=== PATIENT | male | born 1945 | race Caucasian/White ===

== ENCOUNTER → 2017-07-24 | Outpatient (CLI) | payer OTHER ==
[~2017-07-24] MED LIST: ACETAMINOPHEN-O1 TAB PO; CEFTIN500 M1 PO; CENTRUM MEN'S1 EACH PO; CIPRO250 MG PO; CIPRO500 MG PO; COLACE100 MG PO; FLOMAX0.4 MG PO; PYRIDIUM200 M1 PO; VITAMIN D-32000 UNI1 PO
== END | disposition home or self-care (01) ==
LOC: RESCLI 02:39
DX: I10 Essential (primary) hypertension (principal); E66.01 Morbid (severe) obesity due to excess calories; E55.9 Vitamin D deficiency, unspecified; R32 Unspecified urinary incontinence

== ENCOUNTER → 2017-07-28 | Outpatient (CLI) | payer OTHER ==
[2017-07-28 11:14] LABS: ALBUMIN 3.5 gm/dl (3.1-4.5); ALKALINE PHOSPHATASE 85 U/L (45-117); BUN 14 mg/dl (7-24); CHLORIDE 105 mmol/L (98-107); CHOLESTEROL 192 mg/dL (<200); CREATININE 1.02 mg/dL (0.70-1.30); HDL CHOLESTEROL 49 mg/dl (40-60); LDL CHOLESTEROL 115 mg/dL (9-159); POTASSIUM 5.1 mmol/L (3.5-5.1); SGOT/AST 30 IU/L (3-35); SGPT/ALT 53 U/L (12-78); SODIUM 139 mmol/L (136-145); TOTAL PROTEIN 7.8 gm/dL (6.4-8.2); TRIGLYCERIDES 141 mg/dl (<150); VLDL CHOLESTEROL 28 mg/dL (6-40)
== END | disposition home or self-care (01) ==
LOC: LAB 10:08
PROVIDERS: Student in an Organized Health Care Education/Training Program
DX: Z00.01 Encounter for general adult medical examination with abnormal findings (principal); R79.89 Other specified abnormal findings of blood chemistry; Z79.899 Other long term (current) drug therapy

== ENCOUNTER → 2017-07-31 | Outpatient (CLI) | payer OTHER | END | disposition home or self-care (01) | LOC: RESCLI 01:22 | DX: Z09 Encounter for follow-up examination after completed treatment for conditions other than malignant neoplasm (principal); I10 Essential (primary) hypertension; E66.01 Morbid (severe) obesity due to excess calories; E55.9 Vitamin D deficiency, unspecified ==

== ENCOUNTER → 2017-09-13 | Outpatient (CLI) | payer OTHER ==
[2017-09-13 12:23] LABS: BUN 18 mg/dl (7-24); CHLORIDE 107 mmol/L (98-107); CREATININE 0.92 mg/dL (0.70-1.30); POTASSIUM 4.6 mmol/L (3.5-5.1); SODIUM 139 mmol/L (136-145)
== END | disposition home or self-care (01) ==
LOC: LAB 00:44 → RESCLI 00:44
PROVIDERS: Student in an Organized Health Care Education/Training Program
DX: I10 Essential (primary) hypertension (principal)

== ENCOUNTER → 2017-10-25 | Outpatient (CLI) | payer OTHER | END | disposition home or self-care (01) | LOC: RESCLI 00:46 | DX: Z09 Encounter for follow-up examination after completed treatment for conditions other than malignant neoplasm (principal); I10 Essential (primary) hypertension; E66.01 Morbid (severe) obesity due to excess calories; E55.9 Vitamin D deficiency, unspecified; R60.0 Localized edema ==

== ENCOUNTER → 2018-01-23 | Outpatient (CLI) | payer OTHER ==
[~2018-01-23] MED LIST changes: +LISINOPRIL20 MG PO; +SEPTDS PO
== END | disposition home or self-care (01) ==
LOC: RESCLI 01:33
DX: Z09 Encounter for follow-up examination after completed treatment for conditions other than malignant neoplasm (principal); I10 Essential (primary) hypertension; E66.01 Morbid (severe) obesity due to excess calories; E55.9 Vitamin D deficiency, unspecified; R60.0 Localized edema

== ENCOUNTER 2018-02-05 12:04 | Emergency (ER) | payer OTHER ==
[~2018-02-05] VITALS: Ht 177.8 cm; Wt 122.5 kg
[~2018-02-05 12:04] MED LIST changes: -LISINOPRIL20 MG PO; -SEPTDS PO
[2018-02-05] MEDS ORDERED: LISINOPRIL20 MG PO (12:06)
[2018-02-05 12:24] LABS: BILIRUBIN NEGATIVE (NEGATIVE); BLOOD 1+ (NEGATIVE); CLARITY CLOUDY (CLEAR); COLOR YELLOW (YELLOW); GLUCOSE NEGATIVE (NEGATIVE); KETONE NEGATIVE (NEGATIVE); LEUKO ESTERASE 3+ (NEGATIVE); NITRITE POSITIVE (NEGATIVE); UROBILINOGEN 0.2 E.U./dl (0.2-1.0)
[2018-02-05 12:47] LABS: RBC 21-30 rbc/hpf (0-2); WBC TNTC wbc/hpf (0-5)
[2018-02-05 12:48] LABS: BACTERIA 3+
[2018-02-05] MEDS ORDERED: SEPTDS PO (12:57)
== END 2018-02-05 13:07 | disposition home or self-care (01) ==
LOC: ED 12:04
PROVIDERS: Nurse Practitioner Family
DX: N39.0 Urinary tract infection, site not specified (principal); R31.9 Hematuria, unspecified; R30.0 Dysuria; R03.0 Elevated blood-pressure reading, without diagnosis of hypertension; Z79.899 Other long term (current) drug therapy

== ENCOUNTER → 2018-02-22 | Outpatient (CLI) | payer OTHER ==
[~2018-02-22] MED LIST changes: +LISINOPRIL20 MG PO; +SEPTDS PO
[2018-02-22 15:12] LABS: BILIRUBIN NEGATIVE (NEGATIVE); BLOOD NEGATIVE (NEGATIVE); CLARITY CLEAR (CLEAR); COLOR YELLOW (YELLOW); GLUCOSE NEGATIVE (NEGATIVE); KETONE NEGATIVE (NEGATIVE); LEUKO ESTERASE 2+ (NEGATIVE); NITRITE NEGATIVE (NEGATIVE)
[2018-02-22 15:19] LABS: BACTERIA 2+; RBC 0-2 rbc/hpf (0-2); WBC 16-20 wbc/hpf (0-5)
== END | disposition home or self-care (01) ==
LOC: RESCLI 01:42
PROVIDERS: Internal Medicine
DX: N39.0 Urinary tract infection, site not specified (principal); I10 Essential (primary) hypertension; E66.9 Obesity, unspecified; Z79.899 Other long term (current) drug therapy

== ENCOUNTER → 2018-03-16 | Outpatient (CLI) | payer OTHER ==
[2018-03-16 09:45] LABS: BASO # 0.1 10*3/uL (0.0-0.1); EOS # 0.6 10*3/uL (0.0-0.4); HEMATOCRIT 44.1 % (42.0-52.0); HEMOGLOBIN 14.4 g/dl (14.0-18.0); LYMPH % 22.5 % (27.0-41.0); MEAN CELL VOLUME 95.5 fl (80.0-94.0); MEAN CORPUSCULAR HGB 31.2 pg (27.0-31.0); MEAN CORPUSCULAR HGB CONC 32.7 g/dl (33.0-37.0); MEAN PLATELET VOLUME 11.6 fl (9.6-12.3); MONO # 0.7 10*3/uL (0.1-1.0); NEUT # 5.3 10*3/uL (2.3-7.9); NEUT % 61.3 % (47.0-73.0); PLATELET COUNT AUTOMATED 212 10*3/uL (130-400); RED BLOOD COUNT 4.62 10*6/uL (4.50-5.90); RED CELL DISTRI WIDTH 14.2 % (0-14.5); WHITE BLOOD COUNT 8.7 10*3/uL (4.8-10.8)
[2018-03-16 09:54] LABS: BILIRUBIN NEGATIVE (NEGATIVE); BLOOD TRACE-INTACT (NEGATIVE); CLARITY CLOUDY (CLEAR); COLOR YELLOW (YELLOW); GLUCOSE NEGATIVE (NEGATIVE); KETONE NEGATIVE (NEGATIVE); LEUKO ESTERASE 3+ (NEGATIVE); NITRITE POSITIVE (NEGATIVE); PH 5.5 (5.0-9.0); UROBILINOGEN 0.2 E.U./dl (0.2-1.0)
[2018-03-16 10:02] LABS: ALBUMIN 3.6 gm/dl (3.1-4.5); ALKALINE PHOSPHATASE 68 U/L (45-117); BUN 19 mg/dl (7-24); CHLORIDE 104 mmol/L (98-107); CHOLESTEROL 170 mg/dL (<200); HDL CHOLESTEROL 44 mg/dl (40-60); LDL CHOLESTEROL 103 mg/dL (9-159); POTASSIUM 4.1 mmol/L (3.5-5.1); SGOT/AST 15 IU/L (3-35); SGPT/ALT 30 U/L (12-78); SODIUM 137 mmol/L (136-145); TOTAL PROTEIN 7.5 gm/dL (6.4-8.2); TRIGLYCERIDES 114 mg/dl (<150); VLDL CHOLESTEROL 23 mg/dL (6-40)
[2018-03-16 10:21] LABS: WBC TNTC wbc/hpf (0-5)
== END | disposition home or self-care (01) ==
LOC: LAB 14:02
PROVIDERS: Internal Medicine
DX: Z00.01 Encounter for general adult medical examination with abnormal findings (principal); Z12.5 Encounter for screening for malignant neoplasm of prostate; N39.0 Urinary tract infection, site not specified; E55.9 Vitamin D deficiency, unspecified; Z79.899 Other long term (current) drug therapy

== ENCOUNTER → 2018-06-05 | Outpatient (CLI) | payer OTHER ==
[2018-06-05 10:56] LABS: BILIRUBIN NEGATIVE (NEGATIVE); BLOOD NEGATIVE (NEGATIVE); CLARITY CLEAR (CLEAR); COLOR YELLOW (YELLOW); GLUCOSE NEGATIVE (NEGATIVE); KETONE 1+ (NEGATIVE); LEUKO ESTERASE 1+ (NEGATIVE); NITRITE NEGATIVE (NEGATIVE); SPECIFIC GRAVITY <= 1.005 (1.005-1.030); UROBILINOGEN 0.2 E.U./dl (0.2-1.0)
[2018-06-05 11:04] LABS: BACTERIA TRACE; EPITHELIAL CELLS 0-2; WBC 16-20 wbc/hpf (0-5)
== END | disposition home or self-care (01) ==
LOC: RESCLI 09:08
PROVIDERS: Student in an Organized Health Care Education/Training Program
DX: M54.5 Low back pain (principal); M54.32 Sciatica, left side; M79.605 Pain in left leg; I10 Essential (primary) hypertension; E66.01 Morbid (severe) obesity due to excess calories; E55.9 Vitamin D deficiency, unspecified; N40.0 Benign prostatic hyperplasia without lower urinary tract symptoms; R32 Unspecified urinary incontinence; Z88.8 Allergy status to other drugs, medicaments and biological substances

== ENCOUNTER → 2018-06-14 | Outpatient (CLI) | payer OTHER | END | disposition home or self-care (01) | LOC: RESCLI 03:26 | DX: I10 Essential (primary) hypertension (principal); E66.01 Morbid (severe) obesity due to excess calories; M54.42 Lumbago with sciatica, left side; E55.9 Vitamin D deficiency, unspecified; R60.0 Localized edema ==

== ENCOUNTER → 2018-07-19 | Outpatient (CLI) | payer OTHER | END | disposition home or self-care (01) | LOC: RESCLI 04:09 | DX: I10 Essential (primary) hypertension (principal); E55.9 Vitamin D deficiency, unspecified; E66.01 Morbid (severe) obesity due to excess calories; Z79.899 Other long term (current) drug therapy ==

== ENCOUNTER → 2019-01-08 | Outpatient (CLI) | payer OTHER ==
[2019-01-08 10:36] LABS: ALBUMIN 3.6 gm/dl (3.1-4.5); ALKALINE PHOSPHATASE 75 U/L (45-117); BUN 18 mg/dl (7-24); CHLORIDE 108 mmol/L (98-107); CREATININE 1.01 mg/dL (0.70-1.30); POTASSIUM 4.1 mmol/L (3.5-5.1); SGOT/AST 16 IU/L (3-35); SGPT/ALT 35 U/L (12-78); SODIUM 140 mmol/L (136-145); TOTAL PROTEIN 7.7 gm/dL (6.4-8.2)
== END | disposition home or self-care (01) ==
LOC: LAB 09:34
PROVIDERS: Internal Medicine
DX: I10 Essential (primary) hypertension (principal); E66.01 Morbid (severe) obesity due to excess calories; E55.9 Vitamin D deficiency, unspecified; Z79.899 Other long term (current) drug therapy

== ENCOUNTER → 2019-01-09 | Outpatient (CLI) | payer OTHER | END | disposition home or self-care (01) | LOC: RESCLI 00:47 | DX: I10 Essential (primary) hypertension (principal); E55.9 Vitamin D deficiency, unspecified; E66.9 Obesity, unspecified ==

== ENCOUNTER → 2019-06-12 | Outpatient (CLI) | payer OTHER | END | disposition home or self-care (01) | LOC: RESCLI 01:23 | DX: I10 Essential (primary) hypertension (principal); E55.9 Vitamin D deficiency, unspecified; Z79.899 Other long term (current) drug therapy ==

== ENCOUNTER → 2020-07-17 | Outpatient (CLI) | payer OTHER ==
[2020-07-17 11:30] LABS: BASO # 0.1 10*3/uL (0.0-0.1); BASO % 0.7 % (0.0-1.0); EOS # 0.3 10*3/uL (0.0-0.4); EOS % 3.1 % (1.0-4.0); HEMATOCRIT 47.7 % (42.0-52.0); LYMPH # 1.8 10*3/uL (1.3-4.4); LYMPH % 17.9 % (27.0-41.0); MEAN CELL VOLUME 94.5 fl (80.0-94.0); MEAN CORPUSCULAR HGB 30.7 pg (27.0-31.0); MEAN CORPUSCULAR HGB CONC 32.5 g/dl (33.0-37.0); MEAN PLATELET VOLUME 11.2 fl (9.6-12.3); MONO # 0.6 10*3/uL (0.1-1.0); MONO % 6.3 % (3.0-9.0); NEUT # 7.1 10*3/uL (2.3-7.9); NEUT % 71.7 % (47.0-73.0); PLATELET COUNT AUTOMATED 253 10*3/uL (130-400); RED BLOOD COUNT 5.05 10*6/uL (4.50-5.90); RED CELL DISTRI WIDTH 13.1 % (0-14.5); WHITE BLOOD COUNT 9.9 10*3/uL (4.8-10.8)
[2020-07-17 12:01] LABS: ALBUMIN 3.8 gm/dl (3.1-4.5); ALKALINE PHOSPHATASE 95 U/L (45-117); BUN 19 mg/dl (7-24); CHLORIDE 105 mmol/L (98-107); CHOLESTEROL 120 mg/dL (<200); CREATININE 0.99 mg/dL (0.70-1.30); HDL CHOLESTEROL 56 mg/dl (40-60); LDL CHOLESTEROL 48 mg/dL (9-159); POTASSIUM 4.1 mmol/L (3.5-5.1); SGOT/AST 32 IU/L (3-35); SGPT/ALT 61 U/L (12-78); SODIUM 138 mmol/L (136-145); TRIGLYCERIDES 80 mg/dl (<150); VLDL CHOLESTEROL 16 mg/dL (6-40)
== END | disposition home or self-care (01) ==
LOC: LAB 11:03
PROVIDERS: Internal Medicine; ATTEND Family Medicine
DX: I10 Essential (primary) hypertension (principal); Z79.899 Other long term (current) drug therapy

== ENCOUNTER → 2020-07-24 | Outpatient (CLI) | payer OTHER | END | disposition home or self-care (01) | LOC: RESCLI 00:32 | PROVIDERS: ATTEND Internal Medicine | DX: E55.9 Vitamin D deficiency, unspecified (principal); I10 Essential (primary) hypertension; N39.0 Urinary tract infection, site not specified; Z79.899 Other long term (current) drug therapy ==

== ENCOUNTER 2020-11-03 10:58 | Emergency (ER) | payer OTHER ==
[~2020-11-03] VITALS: Wt 117.9 kg
== END 2020-11-03 14:45 | disposition home or self-care (01) ==
LOC: ED 10:58
DX: S01.511A Laceration without foreign body of lip, initial encounter (principal); Z79.899 Other long term (current) drug therapy; W01.190A Fall on same level from slipping, tripping and stumbling with subsequent striking against furniture, initial encounter; Y93.89 Activity, other specified; Y92.89 Other specified places as the place of occurrence of the external cause; Y99.8 Other external cause status

== ENCOUNTER → 2020-11-09 | Outpatient (CLI) | payer OTHER | END | disposition home or self-care (01) | LOC: RESCLI 00:21 | PROVIDERS: ATTEND Internal Medicine Nephrology | DX: S01.511D Laceration without foreign body of lip, subsequent encounter (principal); I10 Essential (primary) hypertension; E55.9 Vitamin D deficiency, unspecified; N39.0 Urinary tract infection, site not specified; X58.XXXD Exposure to other specified factors, subsequent encounter; Z98.890 Other specified postprocedural states ==

== ENCOUNTER → 2020-11-13 | Outpatient (CLI) | payer OTHER | END | disposition home or self-care (01) | LOC: RESCLI 14:05 | PROVIDERS: ATTEND Psychiatry & Neurology Neurology | DX: S01.511D Laceration without foreign body of lip, subsequent encounter (principal); X58.XXXD Exposure to other specified factors, subsequent encounter ==

== ENCOUNTER → 2020-12-23 | Outpatient (CLI) | payer OTHER ==
[~2020-12-23] MED LIST changes: +ATORVASTATIN CA20 M1 PO; +DOXYCYCLINE100 M3 PO
== END ==
LOC: WOUNDCARE 01:54
PROVIDERS: ATTEND Nurse Practitioner
DX: S80.811A Abrasion, right lower leg, initial encounter (principal); L03.115 Cellulitis of right lower limb; I10 Essential (primary) hypertension; E78.5 Hyperlipidemia, unspecified; E55.9 Vitamin D deficiency, unspecified; N40.0 Benign prostatic hyperplasia without lower urinary tract symptoms; W22.8XXA Striking against or struck by other objects, initial encounter; Y93.89 Activity, other specified; Y92.89 Other specified places as the place of occurrence of the external cause; Y99.8 Other external cause status

== ENCOUNTER → 2020-12-30 | Outpatient (CLI) | payer OTHER | END | disposition home or self-care (01) | LOC: RESCLI 01:29 | PROVIDERS: ATTEND Internal Medicine Nephrology | DX: I10 Essential (primary) hypertension (principal); E66.01 Morbid (severe) obesity due to excess calories; E55.9 Vitamin D deficiency, unspecified; E78.2 Mixed hyperlipidemia; N30.00 Acute cystitis without hematuria; Z79.899 Other long term (current) drug therapy; Z98.890 Other specified postprocedural states ==

== ENCOUNTER 2021-01-24 14:03 | Emergency (ER) | payer OTHER ==
[~2021-01-24] VITALS: Ht 177.8 cm; Wt 113.4 kg
[2021-01-24] MEDS ORDERED: VIBRAMYCIN100 MG PO (16:52)
== END 2021-01-24 17:13 | disposition home or self-care (01) ==
LOC: ED 14:03
DX: L03.115 Cellulitis of right lower limb (principal); E78.5 Hyperlipidemia, unspecified; Z79.899 Other long term (current) drug therapy; Z98.890 Other specified postprocedural states

== ENCOUNTER → 2021-02-04 | Outpatient (CLI) | payer OTHER ==
[~2021-02-04] MED LIST changes: +VIBRAMYCIN100 MG PO
== END | disposition home or self-care (01) ==
LOC: RESCLI 06:40
PROVIDERS: ATTEND Internal Medicine
DX: I10 Essential (primary) hypertension (principal); E55.9 Vitamin D deficiency, unspecified; E78.2 Mixed hyperlipidemia; E66.01 Morbid (severe) obesity due to excess calories; Z79.899 Other long term (current) drug therapy; Z98.890 Other specified postprocedural states

== ENCOUNTER → 2021-05-07 | Outpatient (CLI) | payer OTHER ==
[2021-05-07 09:15] LABS: BASO # 0.1 10*3/uL (0.0-0.1); BASO % 0.7 % (0.0-1.0); EOS # 0.4 10*3/uL (0.0-0.4); EOS % 5.2 % (1.0-4.0); HEMATOCRIT 46.6 % (42.0-52.0); LYMPH # 1.9 10*3/uL (1.3-4.4); LYMPH % 21.9 % (27.0-41.0); MEAN CELL VOLUME 97.7 fl (80.0-94.0); MEAN CORPUSCULAR HGB 30.8 pg (27.0-31.0); MEAN CORPUSCULAR HGB CONC 31.5 g/dl (33.0-37.0); MEAN PLATELET VOLUME 11.8 fl (9.6-12.3); MONO # 0.6 10*3/uL (0.1-1.0); MONO % 7.4 % (3.0-9.0); NEUT # 5.5 10*3/uL (2.3-7.9); NEUT % 64.6 % (47.0-73.0); PLATELET COUNT AUTOMATED 214 10*3/uL (130-400); RED BLOOD COUNT 4.77 10*6/uL (4.50-5.90); RED CELL DISTRI WIDTH 13.5 % (0-14.5); WHITE BLOOD COUNT 8.5 10*3/uL (4.8-10.8)
[2021-05-07 09:34] LABS: ALBUMIN 3.2 gm/dl (3.1-4.5); ALKALINE PHOSPHATASE 77 U/L (45-117); BUN 16 mg/dl (7-24); CHLORIDE 110 mmol/L (98-107); CHOLESTEROL 186 mg/dL (<200); CREATININE 0.92 mg/dL (0.70-1.30); LDL CHOLESTEROL 115 mg/dL (9-159); POTASSIUM 4.3 mmol/L (3.5-5.1); SGOT/AST 13 IU/L (3-35); SGPT/ALT 26 U/L (12-78); SODIUM 142 mmol/L (136-145); TOTAL PROTEIN 7.1 gm/dL (6.4-8.2); TRIGLYCERIDES 76 mg/dl (<150)
== END | disposition home or self-care (01) ==
LOC: LAB 08:46
PROVIDERS: Internal Medicine; ATTEND Internal Medicine
DX: I10 Essential (primary) hypertension (principal); E78.2 Mixed hyperlipidemia

== ENCOUNTER → 2021-07-14 | Outpatient (CLI) | payer OTHER | END | disposition home or self-care (01) | LOC: RESCLI 01:25 | PROVIDERS: ATTEND Family Medicine | DX: Z23 Encounter for immunization (principal); I10 Essential (primary) hypertension; E55.9 Vitamin D deficiency, unspecified; Z79.899 Other long term (current) drug therapy ==

== ENCOUNTER → 2022-01-06 | Outpatient (CLI) | payer OTHER ==
[2022-01-06 10:17] LABS: BASO # 0.1 10*3/uL (0.0-0.1); BASO % 0.8 % (0.0-1.0); EOS # 0.4 10*3/uL (0.0-0.4); EOS % 4.8 % (1.0-4.0); HEMATOCRIT 47.5 % (42.0-52.0); LYMPH # 1.5 10*3/uL (1.3-4.4); MEAN CELL VOLUME 94.4 fl (80.0-94.0); MEAN CORPUSCULAR HGB 30.8 pg (27.0-31.0); MEAN CORPUSCULAR HGB CONC 32.6 g/dl (33.0-37.0); MEAN PLATELET VOLUME 11.2 fl (9.6-12.3); MONO # 0.6 10*3/uL (0.1-1.0); MONO % 7.7 % (3.0-9.0); NEUT # 5.2 10*3/uL (2.3-7.9); NEUT % 67.6 % (47.0-73.0); PLATELET COUNT AUTOMATED 238 10*3/uL (130-400); RED BLOOD COUNT 5.03 10*6/uL (4.50-5.90); WHITE BLOOD COUNT 7.7 10*3/uL (4.8-10.8)
[2022-01-06 11:06] LABS: ALKALINE PHOSPHATASE 66 U/L (45-117); BUN 16 mg/dl (7-24); CHLORIDE 110 mmol/L (98-107); CHOLESTEROL 201 mg/dL (<200); CREATININE 1.05 mg/dL (0.70-1.30); LDL CHOLESTEROL 127 mg/dL (9-159); POTASSIUM 4.2 mmol/L (3.5-5.1); SGOT/AST 18 IU/L (3-35); SGPT/ALT 40 U/L (12-78); SODIUM 141 mmol/L (136-145); TOTAL PROTEIN 7.3 gm/dL (6.4-8.2); TRIGLYCERIDES 97 mg/dl (<150)
== END | disposition home or self-care (01) ==
LOC: LAB 09:54
PROVIDERS: ATTEND Internal Medicine
DX: I10 Essential (primary) hypertension (principal); E78.2 Mixed hyperlipidemia

== ENCOUNTER → 2022-01-12 | Outpatient (CLI) | payer OTHER | END | disposition home or self-care (01) | LOC: RESCLI 00:17 | PROVIDERS: ATTEND Emergency Medicine | DX: I10 Essential (primary) hypertension (principal); E55.9 Vitamin D deficiency, unspecified; E66.9 Obesity, unspecified; E78.2 Mixed hyperlipidemia; Z79.899 Other long term (current) drug therapy ==

== ENCOUNTER → 2022-11-23 | Outpatient (CLI) | payer OTHER | END | disposition home or self-care (01) | LOC: RESCLI 00:41 | PROVIDERS: ATTEND Internal Medicine | DX: I10 Essential (primary) hypertension (principal); E55.9 Vitamin D deficiency, unspecified; Z98.890 Other specified postprocedural states; Z79.899 Other long term (current) drug therapy ==

== ENCOUNTER → 2023-06-19 | Outpatient (CLI) | payer OTHER ==
[2023-06-19 11:32] LABS: BASO # 0.1 10*3/uL (0.0-0.1); EOS # 0.4 10*3/uL (0.0-0.4); EOS % 4.1 % (1.0-4.0); LYMPH # 1.2 10*3/uL (1.3-4.4); LYMPH % 13.1 % (27.0-41.0); MEAN CELL VOLUME 98.5 fl (80.0-94.0); MEAN CORPUSCULAR HGB 30.3 pg (27.0-31.0); MEAN CORPUSCULAR HGB CONC 30.8 g/dl (33.0-37.0); MEAN PLATELET VOLUME 10.9 fl (9.6-12.3); MONO # 0.8 10*3/uL (0.1-1.0); MONO % 8.5 % (3.0-9.0); NEUT # 6.5 10*3/uL (2.3-7.9); NEUT % 72.9 % (47.0-73.0); PLATELET COUNT AUTOMATED 300 10*3/uL (130-400); RED BLOOD COUNT 4.06 10*6/uL (4.50-5.90); RED CELL DISTRI WIDTH 14.5 % (0-14.5); WHITE BLOOD COUNT 8.9 10*3/uL (4.8-10.8)
[2023-06-19 12:11] LABS: ALKALINE PHOSPHATASE 55 U/L (46-116); BUN 18 mg/dl (9-23); CHLORIDE 109 mmol/L (98-107); POTASSIUM 4.2 mmol/L (3.4-5.1); SGPT/ALT 12 U/L (5-49); TOTAL PROTEIN 6.9 gm/dL (6.0-8.0)
== END | disposition home or self-care (01) ==
LOC: LAB 10:40
PROVIDERS: ATTEND Internal Medicine
DX: I10 Essential (primary) hypertension (principal)

== ENCOUNTER → 2023-06-21 | Outpatient (CLI) | payer OTHER | END | disposition home or self-care (01) | LOC: RESCLI 02:53 | PROVIDERS: ATTEND Internal Medicine | DX: I10 Essential (primary) hypertension (principal); E55.9 Vitamin D deficiency, unspecified; Z79.899 Other long term (current) drug therapy ==

== ENCOUNTER 2023-09-28 10:14 | Emergency (ER) | payer OTHER ==
[~2023-09-28] VITALS: Ht 180.3 cm; Wt 94.8 kg
[2023-09-28 11:01] LABS: BASO # 0.1 10*3/uL (0.0-0.1); BASO % 0.6 % (0.0-1.0); EOS # 0.1 10*3/uL (0.0-0.4); EOS % 1.4 % (1.0-4.0); HEMATOCRIT 45.7 % (42.0-52.0); LYMPH # 1.1 10*3/uL (1.3-4.4); LYMPH % 11.3 % (27.0-41.0); MEAN CELL VOLUME 96.8 fl (80.0-94.0); MEAN CORPUSCULAR HGB 29.9 pg (27.0-31.0); MEAN CORPUSCULAR HGB CONC 30.9 g/dl (33.0-37.0); MEAN PLATELET VOLUME 11.4 fl (9.6-12.3); MONO # 0.4 10*3/uL (0.1-1.0); MONO % 4.3 % (3.0-9.0); NEUT # 7.7 10*3/uL (2.3-7.9); NEUT % 82.2 % (47.0-73.0); PLATELET COUNT AUTOMATED 247 10*3/uL (130-400); RED BLOOD COUNT 4.72 10*6/uL (4.50-5.90); RED CELL DISTRI WIDTH 14.9 % (0-14.5); WHITE BLOOD COUNT 9.3 10*3/uL (4.8-10.8)
[2023-09-28 11:04] LABS: BILIRUBIN Negative (Negative); BLOOD 3+ (Negative); GLUCOSE Negative (Negative); KETONE Negative (Negative); LEUKO ESTERASE 3+ (Negative); NITRITE Negative (Negative); PH 6.5 (4.5-8.0); SPECIFIC GRAVITY 1.015 (1.001-1.030); UROBILINOGEN 0.2 E.U./dl (0.0-1.0)
[2023-09-28 11:06] LABS: CLARITY Turbid (Clear); COLOR Red (Yellow)
[2023-09-28 11:11] LABS: ACT PARTIAL THROMBO TIME 28.5 SECONDS (20.0-32.1)
[2023-09-28 11:18] LABS: ALKALINE PHOSPHATASE 68 U/L (46-116); BUN 18 mg/dl (9-23); CHLORIDE 106 mmol/L (98-107); LIPASE 33 U/L (12-53); POTASSIUM 3.4 mmol/L (3.4-5.1); SGPT/ALT 14 U/L (5-49)
[2023-09-28] MEDS ORDERED: IOHEXOL 300 MG/ML 100 ML VIAL IV ONE (11:20)
[2023-09-28 11:30] LABS: RBC TNTC rbc/hpf (0-2)
[2023-09-28] MEDS ORDERED: CIPRO500 MG PO (13:56)
== END 2023-09-28 14:06 | disposition home or self-care (01) ==
LOC: ED 10:14
PROVIDERS: Internal Medicine
DX: N21.0 Calculus in bladder (principal); Z98.890 Other specified postprocedural states

== ENCOUNTER → 2023-12-20 | Outpatient (CLI) | payer MEDICARE | END | disposition home or self-care (01) | LOC: RESCLI 02:04 | PROVIDERS: ATTEND Internal Medicine | DX: E55.9 Vitamin D deficiency, unspecified (principal) ==

== ENCOUNTER 2025-05-21 12:41 | Inpatient (IN) | payer MEDICARE ==
[~2025-05-21] VITALS: Ht 177.8 cm; Wt 81.8 kg
[2025-05-21] VITALS (11 sets, daily range): BP systolic 102–136; BP diastolic 55–74
[2025-05-21] MEDS ORDERED: DILTIAZEM HCL IN NACL,ISO-OSM 5 ML IV ONE (13:10)
[2025-05-21] MEDS ORDERED: ASPIRIN 325 MG TAB PO ONE (13:10)
[2025-05-21] MEDS ORDERED: DILTIAZEM HCL IN NACL,ISO-OSM 100 ML IV SCH (13:15)
[2025-05-21 13:25] LABS: BASO # 0.1 10*3/uL (0.0-0.1); BASO % 0.4 % (0.0-1.0); EOS # 0.1 10*3/uL (0.0-0.4); EOS % 0.7 % (1.0-4.0); MEAN CELL VOLUME 89.0 fl (80.0-94.0); MEAN CORPUSCULAR HGB 27.6 pg (27.0-31.0); MEAN PLATELET VOLUME 10.4 fl (9.6-12.3); MONO # 0.8 10*3/uL (0.1-1.0); MONO % 6.7 % (3.0-9.0); NEUT # 9.3 10*3/uL (2.3-7.9); NEUT % 83.9 % (47.0-73.0); NUCLEATED RED BLOOD CELL 0.0 % (0.0-0.0); NUCLEATED RED BLOOD CELL 0.0 10*3/uL (0.0-0.0); PLATELET COUNT AUTOMATED 392 10*3/uL (130-400); RED CELL DISTRI WIDTH 16.3 % (0-14.5)
[2025-05-21] MEDS ORDERED: ASPIRIN, CHEWABLE 81 MG TAB PO ONE (13:30)
[2025-05-21 13:36] LABS: ACT PARTIAL THROMBO TIME 28.5 SECONDS (20.0-32.1)
[2025-05-21 13:56] LABS: BUN 26 mg/dl (9-23); CPK 31 U/L (34-171)
[2025-05-21] MEDS ORDERED: FUROSEMIDE20 M1 PO (14:02)
[2025-05-21] MEDS ORDERED: ALDACTONE25 MG PO (14:02)
[2025-05-21] MEDS ORDERED: METOPROLOL SUCC25 M2 PO (14:02)
[2025-05-21] MEDS ORDERED: POTASSIUM CHLO20 ME3 PO (14:02)
[2025-05-21] MEDS ORDERED: ASPIRIN ADULT L81 M2 PO (14:02)
[2025-05-21] MEDS ORDERED: ATORVASTATIN CA80 M1 PO (14:02)
[2025-05-21] MEDS ORDERED: FARXIGA10 M1 PO (14:02)
[2025-05-21] MEDS ORDERED: CLOPIDOGREL75 MG PO (14:02)
[2025-05-21] MEDS ORDERED: Acetaminophen/Hydrocodone 5 MG/325 MG TABLET PO PRN (14:10)
[2025-05-21] MEDS ORDERED: BISACODYL 10 MG SUPP R PRN (14:10)
[2025-05-21] MEDS ORDERED: ACETAMINOPHEN 650 MG SUPP R PRN (14:10)
[2025-05-21] MEDS ORDERED: ACETAMINOPHEN 325 MG TAB PO PRN (14:10)
[2025-05-21] MEDS ORDERED: FUROSEMIDE 20 MG/2 ML VIAL IV SCH (18:00)
[2025-05-21 18:27] LABS: BILIRUBIN Negative (Negative); BLOOD Trace-Lysed (Negative); CLARITY Cloudy (Clear); COLOR Yellow (Yellow); KETONE Trace (Negative); LEUKO ESTERASE 3+ (Negative); NITRITE Positive (Negative); PH 6.0 (4.5-8.0); SPECIFIC GRAVITY 1.015 (1.001-1.030); UROBILINOGEN 0.2 E.U./dl (0.0-1.0)
[2025-05-21 18:42] LABS: BACTERIA 1+; WBC TNTC wbc/hpf (0-5)
[2025-05-21] MEDS ORDERED: ATORVASTATIN CALCIUM 80 MG TAB PO SCH (22:00)
[2025-05-21] MEDS ORDERED: APIXABAN 5 MG TAB PO SCH (22:00)
[2025-05-22] VITALS: BP 116/57
[2025-05-22] MEDS ORDERED: APIXABAN 5 MG TAB PO SCH (06:00)
[2025-05-22 06:02] LABS: BUN 27 mg/dl (9-23); LDL CHOLESTEROL 57 mg/dL (9-159); SGPT/ALT 27 U/L (5-49)
[2025-05-22 06:09] LABS: BASO # 0.1 10*3/uL (0.0-0.1); BASO % 1.0 % (0.0-1.0); EOS # 0.3 10*3/uL (0.0-0.4); EOS % 3.3 % (1.0-4.0); MEAN CELL VOLUME 88.0 fl (80.0-94.0); MEAN CORPUSCULAR HGB 27.2 pg (27.0-31.0); MEAN PLATELET VOLUME 10.8 fl (9.6-12.3); MONO # 0.9 10*3/uL (0.1-1.0); MONO % 8.8 % (3.0-9.0); NEUT # 6.9 10*3/uL (2.3-7.9); NEUT % 67.8 % (47.0-73.0); NUCLEATED RED BLOOD CELL 0.0 % (0.0-0.0); NUCLEATED RED BLOOD CELL 0.0 10*3/uL (0.0-0.0); PLATELET COUNT AUTOMATED 390 10*3/uL (130-400); RED CELL DISTRI WIDTH 16.3 % (0-14.5)
[2025-05-22 08:00] VITALS: BP 128/65
[2025-05-22] MEDS ORDERED: POTASSIUM CHLORIDE 20 MEQ TAB PO SCH (10:00)
[2025-05-22] MEDS ORDERED: ASPIRIN ENTERIC COATED 81 MG TAB PO SCH (10:00)
[2025-05-22] MEDS ORDERED: SPIRONOLACTONE 25 MG TAB PO SCH (10:00)
[2025-05-22] MEDS ORDERED: METOPROLOL SUCCINATE XR 25 MG TAB PO SCH (10:00)
[2025-05-22] MEDS ORDERED: Clopidogrel Hydrogen Sulfate 75 MG TAB PO SCH (10:00)
[2025-05-22 12:00] VITALS: BP 134/64
[2025-05-22 16:00] VITALS: BP 118/61
[2025-05-22] MEDS ORDERED: WARFARIN SODIUM 5 MG TAB PO SCH (18:00)
[2025-05-22 20:00] VITALS: BP 125/62
[2025-05-23] VITALS: BP 117/60
[2025-05-23 08:00] VITALS: BP 128/67
[2025-05-23] MEDS ORDERED: FUROSEMIDE 20 MG TAB PO SCH (10:00)
[2025-05-23] MEDS ORDERED: METOPROLOL SUCCINATE XR 50 MG TAB PO SCH (10:00)
[2025-05-23] MEDS ORDERED: EMPAGLIFLOZIN 10 MG TABLET PO SCH (10:45)
[2025-05-23] MEDS ORDERED: SACUBITRIL/VALSARTAN 24 MG-26 MG TABLET PO SCH (10:45)
[2025-05-23 12:00] VITALS: BP 113/55
[2025-05-23] MEDS ORDERED: LISINOPRIL2.5 MG PO (13:08)
[2025-05-23] MEDS ORDERED: METOPROLOL SUCC50 M1 PO (13:08)
[2025-05-23] MEDS ORDERED: ELIQUIS5 M1 PO (13:10)
== END 2025-05-23 14:35 | disposition home or self-care (01) | DRG 291 ==
LOC: ED 12:41 → EDHOLD 13:45 → 5E 13:45
PROVIDERS: Emergency Medicine; Internal Medicine; Student in an Organized Health Care Education/Training Program; ADMIT Student in an Organized Health Care Education/Training Program; ATTEND Student in an Organized Health Care Education/Training Program
DX: I11.0 Hypertensive heart disease with heart failure (principal); E43 Unspecified severe protein-calorie malnutrition; I50.23 Acute on chronic systolic (congestive) heart failure; J91.8 Pleural effusion in other conditions classified elsewhere; N39.0 Urinary tract infection, site not specified; R65.10 Systemic inflammatory response syndrome (SIRS) of non-infectious origin without acute organ dysfunction; E78.5 Hyperlipidemia, unspecified; E55.9 Vitamin D deficiency, unspecified; N40.1 Benign prostatic hyperplasia with lower urinary tract symptoms; R35.0 Frequency of micturition; R73.9 Hyperglycemia, unspecified; I25.10 Atherosclerotic heart disease of native coronary artery without angina pectoris; I48.91 Unspecified atrial fibrillation; Z79.899 Other long term (current) drug therapy; Z79.01 Long term (current) use of anticoagulants; Z79.2 Long term (current) use of antibiotics; Z79.82 Long term (current) use of aspirin; Z83.3 Family history of diabetes mellitus; Z82.49 Family history of ischemic heart disease and other diseases of the circulatory system; Z84.19 Family history of other disorders of kidney and ureter; I25.2 Old myocardial infarction; Z80.8 Family history of malignant neoplasm of other organs or systems; Z95.5 Presence of coronary angioplasty implant and graft; Z68.25 Body mass index [BMI] 25.0-25.9, adult